=== PATIENT | female | born 1965 | race Asian ===

== ENCOUNTER 2024-10-10 06:21 | Day surgery (SDC) | payer OTHER, SELFPAY ==
[2024-10-10 07:58] LABS: Glucose - Point of Care 137 mg/dl (70-99)
== END 2024-10-10 10:34 | disposition home or self-care (01) ==
LOC: GI 06:21
PROVIDERS: ATTENDING PHYSICIAN Internal Medicine Gastroenterology
DX: Z12.11 Encounter for screening for malignant neoplasm of colon (principal); Z86.0101 Personal history of adenomatous and serrated colon polyps; K57.30 Diverticulosis of large intestine without perforation or abscess without bleeding; K64.8 Other hemorrhoids
CPT/HCPCS: G0105; 82962

== ENCOUNTER → 2024-11-21 08:32 | Outpatient (REF) | payer OTHER, SELFPAY | LOC: WDC 08:32 | PROVIDERS: ATTENDING PHYSICIAN Family Medicine | DX: Z12.31 Encounter for screening mammogram for malignant neoplasm of breast (principal) | CPT/HCPCS: 77063; 77067 ==

== ENCOUNTER → 2025-06-18 07:28 | Outpatient (REF) | payer OTHER, SELFPAY | LOC: RAD 07:28 | PROVIDERS: ATTENDING PHYSICIAN Family Medicine | DX: R19.06 Epigastric swelling, mass or lump (principal) | CPT/HCPCS: 71046 ==